=== PATIENT | male | born 1950 | race Hispanic/Latino ===

== ENCOUNTER 2017-09-01 20:27 | Emergency (ER) | payer MEDICARE ==
[~2017-09-01] VITALS: Ht 167.6 cm; Wt 86.2 kg
[~2017-09-01 20:27] MED LIST: ASPIRIN EC81 MG PO; IRON PO; LISINOPRIL-HCT1 EACH PO; METFORMIN HCL500 MG PO; PROMETHAZINE HC25 M1 PO; PROMETHAZINE PO; TAMSULOSIN HCL0.4 MG PO; TYLENOL WITH C1 EAC1 PO; TYLENOL WITH C1 EACH PO
--- NOTE | 2017-09-01 23:49 | Diagnostic Imaging Report ---
EXAMINATION: Head and cervical spine CT without contrast. HISTORY: Status post fall, head trauma, laceration COMPARISON: None. TECHNIQUE: Multidetector axial images were obtained without contrast from the foramen magnum to the vertex and through the cervical spine. The images were reconstructed using brain and bone algorithms. Thin section brain images were reformatted into coronal and sagittal planes. HEAD CT FINDINGS: Skull: No lytic or blastic lesions. No fractures. Parenchyma: A few scattered white matter hypodensities, most likely nonspecific chronic microvascular ischemic changes. No mass, hemorrhage or CT evidence of acute vascular insult. Brain volume: Normal for age. Ventricles: No hydrocephalus or displacement. Arteries: No density suggestive of thrombus. Dural sinuses: No abnormal density. Extra-axial spaces: Tiny hyperdense focus in the anterior aspect of the left inferior frontal gyrus/adjacent subarachnoid space is only seen on the axial plane and likely corresponds to artifact, similar to the one seen on the right inferior frontal region. Foramen magnum: No mass, Chiari malformation, or basilar invagination. Sella: No obvious mass. Paranasal/mastoid sinuses: Imaged portions unremarkable. CERVICAL SPINE CT FINDINGS: Alignment:Normal alignment and lordosis. Soft tissues: Normal. Vertebrae: Normal height and density. No acute fracture, infection or neoplasm. Degenerative changes: C1-C2: Mild degenerative changes without stenoses. C4-C5: Mild uncovertebral hypertrophic thickening in the right. Moderate right foraminal stenoses. C5-C6: Small disc osteophyte, mild uncovertebral and facet hypertrophy. Mild right foraminal stenoses. IMPRESSION: Head CT: No acute posttraumatic intracranial abnormalities, particularly no hemorrhage. Cervical spine CT: 1. No acute fractures or dislocations. 2. Mild chronic degenerative changes as described. Note: Acute post traumatic spinal cord, vascular or ligamentous injury cannot adequately be assessed with CT. Signed by: Dr. Lynnette Garcia M.D. on 09/01/2017 11:45 PM
[2017-09-02 00:23] VITALS: BP 142/87
== END 2017-09-02 00:24 | disposition home or self-care (01) ==
LOC: ER 20:27
DX: S00.83XA Contusion of other part of head, initial encounter (principal); S00.31XA Abrasion of nose, initial encounter; W01.0XXA Fall on same level from slipping, tripping and stumbling without subsequent striking against object, initial encounter; Y93.01 Activity, walking, marching and hiking; Y92.008 Other place in unspecified non-institutional (private) residence as the place of occurrence of the external cause; I10 Essential (primary) hypertension; E11.9 Type 2 diabetes mellitus without complications; Z87.19 Personal history of other diseases of the digestive system
CPT/HCPCS: 70450; 72125; 99283

== ENCOUNTER → 2017-10-19 | Day surgery (SDC) | payer MEDICARE ==
[2017-10-12 12:18] LABS: BASOPHILS # (AUTO) 0.1 (0.0-0.1); BASOPHILS % 0.8 % (0.0-1.0); EOSINOPHILS # (AUTO) 0.2 (0.0-0.4); EOSINOPHILS % 3.4 % (0.0-6.0); HEMATOCRIT 49.6 % (38.2-49.6); HEMOGLOBIN 15.7 g/dL (14.0-18.0); LYMPHOCYTES # (AUTO) 1.7 (1.0-3.2); LYMPHOCYTES % 26.7 % (18.0-39.1); MEAN CORPUSCULAR HEMOGLOBIN 25.8 pg (28-32); MEAN CORPUSCULAR HGB CONC 31.7 g/dL (31-35); MEAN CORPUSCULAR VOLUME 81.4 fL (81-99); MONOCYTES # (AUTO) 0.6 (0.2-0.8); MONOCYTES % 9.8 % (4.4-11.3); NEUTROPHILS # (AUTO) 3.8 (2.1-6.9); NEUTROPHILS % 59.1 % (38.7-80.0); PLATELET COUNT 203 x10e3/uL (140-360); RED BLOOD COUNT 6.09 x10e6/uL (4.3-5.7); RED CELL DISTRIBUTION WIDTH 16.4 % (11.7-14.4)
[~2017-10-19] MED LIST changes: +FENTANYL CITRATE/PF 100MCG/2 ML INJ ONE; +GLUCOSAMINE &1 EAC1; +HYOSCYAMINE SULFATE 0.5 MG/ML AMP ONE; +LISINOPRIL2.5 MG PO; +MIDAZOLAM HCL 2 MG/2 ML VIAL ONE; +MULTI-VITAMIN1 EACH PO; +PROPOFOL IV EMULSION 10 MG/ML 20 ML VIAL ONE
--- OUTSIDE RECORDS SUMMARY | 2017-10-19 10:54 | XMS REPORT | Continuity of Care Document ---
Author Author [facility] Organization [facility] Address [address] [place] [address] Phone Unavailable Care Team Providers Care Butter Maker Name Role Phone MIGUEL ÁNGEL NOVOA MD PCP Insurance Providers Guarantor Pato Pack Address [address] [place] [address] Email NONE Payer Medicare A & B Policy Number [id number] Subscriber's Name Pato Pack Relationship 18 Self / Same As Patient Group Number [id number] Group Name RETIRED Effective Date 15 Advance Directives Directive Response Recorded Date/Time Does the patient have an advance directive? No 03/06/16 5:52pm If yes, is advance directive on file with [facility]? No 03/06/16 5:52pm If not on file with [facility] will patient provide a copy? No 05/07/16 4:12pm Problems Medical Problem Onset Date Status Cellulitis Unknown SBO (small bowel obstruction) 10/17/2015 Acute Surgical Problem Onset Date Status History of CEA (carotid endarterectomy) Unknown Medications Current Home Medications Medication Dose Units Route Directions Days Qty Instructions Start Date Acetaminophen With Codeine (Tylenol With Codeine #4 Tablet) 1 Each Tablet 1 Tab Oral Every 4 Hours as needed for Pain Aspirin (Aspirin Ec) 81 Mg Tablet.dr 81 Mg Oral Daily 30 Tab Iron Oral Three Times A Day Lisinopril/Hydrochlorothiazide (Lisinopril-Hctz 20-12.5 Mg Tab) 1 Each Tablet Oral Daily Metformin Hcl 500 Mg Tablet 500 Mg Oral Twice A Day 60 Tab Promethazine Hcl 25 Mg Tablet 25 Mg Oral Every 4 Hours as needed for Nausea And Vomiting Tamsulosin Hcl 0.4 Mg Cap.er.24h Oral Daily Past Home Medications Medication Directions Ordered Status Acetaminophen With Codeine (Tylenol With Codeine #3 Tablet) 1 Each Tablet, 300 Mg Oral Every 4 Hours as needed for Abdominal Pain Discontinued Promethazine , 25 Mg Oral Every 4 Hours as needed for Nausea Discontinued Family History Relationship Condition Age at Onset Recorded Date/Time 32 Mother FHx: tuberculosis Unknown 10/17/2015 11:00pm Social History Social History Problem Response Recorded Date/Time Onset Date Status Hx Psychiatric Problems No 03/06/2016 5:52pm Not Applicable Not Applicable Hx Eating Disorder No 03/06/2016 5:52pm Not Applicable Not Applicable Hx Substance Use Disorder No 03/06/2016 5:52pm Not Applicable Not Applicable Hx Depression No 03/06/2016 5:52pm Not Applicable Not Applicable Hx Alcohol Use No 03/06/2016 5:52pm Not Applicable Not Applicable Hx Substance Use Treatment No 03/06/2016 5:52pm Not Applicable Not Applicable Hx Physical Abuse No 03/06/2016 5:52pm Not Applicable Not Applicable Smoking Status Start Date Stop Date Never Smoker Hospital Discharge Instructions No hospital discharge instruction information available. Plan of Care Discharge Date 09/02/17 12:24am Disposition HOME, SELF-CARE Condition at Discharge Stable Instructions/Education Provided Abrasion Contusion Prescriptions See Medication Section Referrals MIGUEL ÁNGEL NOVOA MD Order Date: As needed Address: [address] [place] [id number] Additional Instructions/Education Keep your injured extremity elevated above your heart, use ice packs for 15 to 20 minutes every 1-2 hours. This will help decrease pain and swelling. Take Motrin 400mg to 600mg every 4-6 hours as needed for pain. Was abrasions daily and apply thin layer of antibiotic ointment to area. Watch for local signs of infection. Follow up with your Primary care physician as needed. Return to the Emergency Department for any shortness of breath, increased pain injured extremity, discoloration of extremity crit is decreased circulation of extremity, or any new concerns. Functional Status No functional status information available. Allergies, Adverse Reactions, Alerts Allergen Type Severity Reaction Status Last Updated penicillin Allergy Severe RASH Active 09/01/17 Immunizations No immunization information available. Vital Signs Acute Vital Signs Vital Response Date/Time Temperature (Fahrenheit) 97.8 degrees F (97.6 - 99.5) 09/02/2017 12:23am Pulse Pulse Rate (adult) 82 bpm (60 - 90) 09/02/2017 12:23am Pulse Pulse Rate (adult) 82 bpm (60 - 90) 09/02/2017 12:23am Respiratory Rate 18 bpm (12 - 24) 09/02/2017 12:23am Blood Pressure 142/87 mm Hg 09/02/2017 12:23am Blood Pressure 142/87 mm Hg 09/02/2017 12:23am Height 5 ft 6 in 09/01/2017 9:05pm Weight 190 lb 09/01/2017 9:05pm Body Mass Index 30.7 kg/m^2 09/01/2017 9:05pm Results No relevant diagnostic test, laboratory data and/or discharge summary information available. Procedures Procedure Status Date Provider(s) Computed tomography of brain without radiopaque contrast Active 09/01/17 HUE FRASER TILE SETTER SUPERVISOR Computed tomography of cervical spine without contrast Active 09/01/17 HUE FRASER TILE SETTER SUPERVISOR Encounters Encounter Location Arrival/Admit Date Discharge/Depart Date Attending Provider Departed Emergency Room [facility] 09/01/17 8:27pm 12:24am KIT HAWTHORNE MD
--- OUTSIDE RECORDS SUMMARY | 2017-10-19 10:54 | XMS REPORT ---
Author [facility] Address Unknown Phone Unavailable Care Team Providers Care Electrician Elevator Maintenance Name Role Phone KIT HAWTHORNE Unavailable Unavailable Problems This patient has no known problems. Allergies, Adverse Reactions, Alerts This patient has no known allergies or adverse reactions. Medications This patient has no known medications. Results Test Description Test Time Test Comments Text Results Atomic Results Result Comments CT CERVICAL SPINE WO [place] [address] Patient Name: SALAZAR SANDOVAL MR #: [id number] : 1950 Age/Sex: 66/M Req #: [id number] Adm Physician: Ordered by: HUE FRASER FACTORY REPRESENTATIVE Report #: [id number] Location: ER Room/Bed: Procedure: [id number] CT/CT CERVICAL SPINE WO Exam Date: 09/01/17 Exam Time: 2147 REPORT STATUS: Signed EXAMINATION: Head and cervical spine CT without contrast. HISTORY: Status post fall, head trauma, laceration COMPARISON: None. TECHNIQUE: Multidetector axial images were obtained without contrast from the foramen magnum to the vertex and through the cervical spine. The images were reconstructed using brain and bone algorithms. Thin section brain images were reformatted into coronal and sagittal planes. HEAD CT FINDINGS: Skull: No lytic or blastic lesions. No fractures. Parenchyma: A few scattered white matter hypodensities, most likely nonspecific chronic microvascular ischemic changes. No mass, hemorrhage or CT evidence of acute vascular insult. Brain volume: Normal for age. Ventricles: No hydrocephalus or displacement. Arteries: No density suggestive of thrombus. Dural sinuses: No abnormal density. Extra-axial spaces: Tiny hyperdense focus in the anterior aspect of the left inferior frontal gyrus/adjacent subarachnoid space is only seen on the axial plane and likely corresponds to artifact, similar to the one seen on the right inferior frontal region. Foramen magnum: No mass, Chiari malformation, or basilar invagination. Sella: No obvious mass. Paranasal/mastoid sinuses: Imaged portions unremarkable. CERVICAL SPINE CT FINDINGS: Alignment:Normal alignment and lordosis. Soft tissues: Normal. Vertebrae: Normal height and density. No acute fracture, infection or neoplasm. Degenerative changes: C1-C2: Mild degenerative changes without stenoses. C4-C5: Mild uncovertebral hypertrophic thickening in the right. Moderate right foraminal stenoses. C5-C6: Small disc osteophyte, mild uncovertebral and facet hypertrophy. Mild right foraminal stenoses. IMPRESSION: Head CT: No acute posttraumatic intracranial abnormalities, particularly no hemorrhage. Cervical spine CT: 1. No acute fractures or dislocations. 2. Mild chronic degenerative changes as described. Note: Acute post traumatic spinal cord, vascular or ligamentous injury cannot adequately be assessed with CT. Signed by: Dr. Terrell Garcia M.D. on 09/01/2017 11:45 PM Dictated By: TERRELL GARCIA MD COPY TO: HUE FRASER NP CT BRAIN [place] [address] Patient Name: SALAZAR SANDOVAL MR #: [id number] : 1950 Age/Sex: 66/M Req #: [id number] Adm Physician: Ordered by: UHE FRASER NP Report #: [id number] Location: Room/Bed: Procedure: [id number] CT/CT BRAIN WO Exam Date: 09/01/17 Exam Time: 2147 REPORT STATUS: Signed EXAMINATION: Head and cervical spine CT without contrast. HISTORY: Status post fall, head trauma, laceration COMPARISON: None. TECHNIQUE: Multidetector axial images were obtained without contrast from the foramen magnum to the vertex and through the cervical spine. The images were reconstructed using brain and bone algorithms. Thin section brain images were reformatted into coronal and sagittal planes. HEAD CT FINDINGS: Skull: No lytic or blastic lesions. No fractures. Parenchyma: A few scattered white matter hypodensities, most likely nonspecific chronic microvascular ischemic changes. No mass, hemorrhage or CT evidence of acute vascular insult. Brain volume: Normal for age. Ventricles: No hydrocephalus or displacement. Arteries: No density suggestive of thrombus. Dural sinuses: No abnormal density. Extra-axial spaces: Tiny hyperdense focus in the anterior aspect of the left inferior frontal gyrus/adjacent subarachnoid space is only seen on the axial plane and likely corresponds to artifact, similar to the one seen on the right inferior frontal region. Foramen magnum: No mass, Chiari malformation, or basilar invagination. Sella: No obvious mass. Paranasal/mastoid sinuses: Imaged portions unremarkable. CERVICAL SPINE CT FINDINGS: Alignment:Normal alignment and lordosis. Soft tissues: Normal. Vertebrae: Normal height and density. No acute fracture, infection or neoplasm. Degenerative changes: C1-C2: Mild degenerative changes without stenoses. C4-C5: Mild uncovertebral hypertrophic thickening in the right. Moderate right foraminal stenoses. C5-C6: Small disc osteophyte, mild uncovertebral and facet hypertrophy. Mild right foraminal stenoses. IMPRESSION: Head CT: No acute posttraumatic intracranial abnormalities, particularly no hemorrhage. Cervical spine CT: 1. No acute fractures or dislocations. 2. Mild chronic degenerative changes as described. Note: Acute post traumatic spinal cord, vascular or ligamentous injury cannot adequately be assessed with CT. Signed by: Dr. Terrell Garcia M.D. on 09/01/2017 11:45 PM Dictated By: TERRELL GARCIA MD [id number] COPY TO: HUE FRASER NP
--- NOTE | 2017-10-19 16:13 | Operative Report ---
DATE OF PROCEDURE: October 19, 2017 REFERRING PHYSICIAN: Dr. Camila Nuñez. PROCEDURE PERFORMED: 1. Esophagogastroduodenoscopy with esophageal dilatation and biopsies. 2. Colonoscopy with polypectomy. INDICATIONS FOR ESOPHAGOGASTRODUODENOSCOPY: Dysphagia, history of heartburn indigestion. INDICATIONS FOR COLONOSCOPY: Colorectal cancer screening. MEDICATION: Patient was done under MAC. Please see anesthesiologist's note. PROCEDURE: With patient in the left lateral decubitus position, the flexible fiberoptic Olympus gastroscope was introduced into the esophagus under direct visualization without any difficulty. There was some patchy erythema noted in the distal esophagus. A minute tongue of velvety red mucosa was noted to extend proximally from the GE junction, and biopsies were obtained to rule out Hunt's. A mild stricture was noted at the GE junction, and that was dilated to size 52-[place] Almendarez. The scope was then advanced with ease into the stomach. Mucosa overlying the antrum and the body revealed some patchy erythema and low-grade to moderate edema, and biopsies were obtained and sent to stain for H. pylori. Pylorus appeared to be of normal contour and shape, was intubated with ease, and the scope was advanced all the way to the 2nd portion of the duodenum. The scope was then withdrawn slowly, and the mucosa overlying the proximal 2nd portion and the duodenal bulb appeared to be within normal limits. The scope was then withdrawn back into the stomach and retroflexed, and the mucosa overlying the fundus and the cardia appeared to be within normal limits. The scope was then straightened out. It was subsequently withdrawn. Patient tolerated procedure well. IMPRESSION: 1. Distal esophagitis. 2. Rule out Hunt's esophagus. 3. 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 4. Gastritis biopsied. Biopsies sent to stain for H. pylori. PLAN: Follow up histology. Initiate Protonix 40 mg 1 p.o. q.a.m. a.c. Patient was then turned around and after adequate lubrication of the anal canal, a flexible fiberoptic Olympus colonoscope was inserted into the rectum with ease and advanced all the way to the cecum. It was then withdrawn slowly. Mucosa overlying the cecum appeared to be within normal limits. Some diverticular disease was noted in the ascending, transverse and descending colon. Anastomotic site was noted at approximately 20 cm from the anal verge, and it was intact. Two polyps were hot biopsied from the rectum. The scope was then retroflexed into the distal rectum and small internal hemorrhoids were noted, none of which was actively bleeding. The scope was then straightened out. It was subsequently withdrawn. Patient tolerated procedure well. IMPRESSION: 1. Diverticulosis. 2. Anastomosis at approximately 20 cm from the anal verge, intact. 3. Rectal polyps times 2 hot biopsied. 4. Internal hemorrhoids, none actively bleeding. PLAN: Follow up histology. Initiate high-fiber low-fat diet. Initiate high-fiber supplement. Patient will need a followup colonoscopy in 3 to 5 years. Job#: [id number] EV cc:CAMILA NUÑEZ M.D.
== END | disposition home or self-care (01) ==
LOC: OR 10:53
PROVIDERS: ATTEND Internal Medicine Gastroenterology
DX: Z12.11 Encounter for screening for malignant neoplasm of colon (principal); K62.1 Rectal polyp; K29.70 Gastritis, unspecified, without bleeding; K22.2 Esophageal obstruction; K21.9 Gastro-esophageal reflux disease without esophagitis; K22.70 Barrett's esophagus without dysplasia; K20.9 Esophagitis, unspecified; K57.30 Diverticulosis of large intestine without perforation or abscess without bleeding; Z98.0 Intestinal bypass and anastomosis status; K59.00 Constipation, unspecified; K64.8 Other hemorrhoids; I10 Essential (primary) hypertension; E11.9 Type 2 diabetes mellitus without complications; E66.9 Obesity, unspecified; R00.1 Bradycardia, unspecified; Z88.0 Allergy status to penicillin; Z01.810 Encounter for preprocedural cardiovascular examination; Z01.812 Encounter for preprocedural laboratory examination; Z79.84 Long term (current) use of oral hypoglycemic drugs; Z68.32 Body mass index [BMI] 32.0-32.9, adult
CPT/HCPCS: 36415 ×2; 43239; 43450; 45384; 82948; 85025; 93005; J1980; J2250

== ENCOUNTER 2021-11-26 13:20 | Emergency (ER) | payer OTHER ==
[~2021-11-26] VITALS: Ht 165.1 cm; Wt 94.3 kg
[2021-11-26] MEDS ORDERED: IBUPROFEN 600 MG TAB PO STA (13:39)
== END 2021-11-26 15:16 | disposition home or self-care (01) ==
LOC: MERGE 13:34 → ER 13:34
DX: M54.2 Cervicalgia (principal); M54.50 Low back pain, unspecified; M25.562 Pain in left knee; V43.52XA Car driver injured in collision with other type car in traffic accident, initial encounter; Y92.488 Other paved roadways as the place of occurrence of the external cause; I10 Essential (primary) hypertension; E11.9 Type 2 diabetes mellitus without complications
CPT/HCPCS: 72125; 99283

== ENCOUNTER → 2021-11-26 | Emergency (ER) | payer OTHER ==
[~2021-11-26] MED LIST changes: -FENTANYL CITRATE/PF 100MCG/2 ML INJ ONE; -HYOSCYAMINE SULFATE 0.5 MG/ML AMP ONE; -MIDAZOLAM HCL 2 MG/2 ML VIAL ONE; -PROPOFOL IV EMULSION 10 MG/ML 20 ML VIAL ONE
== END | disposition left against medical advice (07) ==
LOC: ER 13:33 → MERGE 13:33
DX: M54.2 Cervicalgia (principal)

== ENCOUNTER 2022-11-22 21:58 | Emergency (ER) | payer MEDICARE, OTHER ==
[~2022-11-22] VITALS: Ht 165.1 cm; Wt 94.3 kg
[2022-11-22] MEDS ORDERED: SODIUM CHLORIDE 0.9% 1000ML 1,000 ML IV ONE (22:15)
[2022-11-22 22:25] LABS: BASOPHILS # (AUTO) 0.1 (0.0-0.1); BASOPHILS % 1.2 % (0.0-1.0); EOSINOPHILS # (AUTO) 0.2 (0.0-0.4); EOSINOPHILS % 2.1 % (0.0-6.0); HEMATOCRIT 45.5 % (38.2-49.6); LYMPHOCYTES # (AUTO) 2.2 (1.0-3.2); MEAN CORPUSCULAR HEMOGLOBIN 25.6 pg (28-32); MEAN CORPUSCULAR VOLUME 77.5 fL (81-99); MONOCYTES # (AUTO) 0.8 (0.2-0.8); MONOCYTES % 9.1 % (4.4-11.3); NEUTROPHILS # (AUTO) 5.8 (2.1-6.9); NEUTROPHILS % 63.4 % (38.7-80.0); PLATELET COUNT 173 x10e3/uL (140-360); RED BLOOD COUNT 5.87 x10e6/uL (4.3-5.7); RED CELL DISTRIBUTION WIDTH 16.3 % (11.7-14.4)
[2022-11-22 22:35] LABS: INR 1.03; PARTIAL THROMBOPLASTIN TIME 29.7 seconds (23.8-35.5)
[2022-11-22 22:44] LABS: ALBUMIN 4.2 g/dL (3.5-5.0); ANION GAP 17.9 mmol/L (8-16); CALCIUM 9.1 mg/dL (8.4-10.2); CREATININE, SERUM 1.01 mg/dL (0.72-1.25); POTASSIUM 3.9 mmol/L (3.5-5.1)
[2022-11-22] MEDS ORDERED: IOPAMIDOL 370 MG/ML 100 ML INFUS..BTL INJ ONE (23:18)
[2022-11-23 01:54] VITALS: BP 118/73; PULSE 57; RESP 15; TEMP 98; O2SAT 95
== END 2022-11-23 01:57 | disposition home or self-care (01) ==
LOC: ER 22:00
DX: K62.5 Hemorrhage of anus and rectum (principal); E11.65 Type 2 diabetes mellitus with hyperglycemia; I10 Essential (primary) hypertension; Z87.19 Personal history of other diseases of the digestive system
CPT/HCPCS: 36415; 74174; 80053; 85025; 85610; 85730; 86850; 86900; 99284; J7030; Q9967

== ENCOUNTER 2024-03-10 12:21 | Emergency (ER) | payer MEDICARE ==
[~2024-03-10] VITALS: Ht 165.1 cm; Wt 94.3 kg
[~2024-03-10 12:21] MED LIST changes: +ANUSOL-HC25 MG RC
[2024-03-10 12:48] VITALS: PULSE 64; RESP 18; TEMP 97.8; O2SAT 98
[2024-03-10] MEDS ORDERED: CIPRO HC OTIC S10 ML LEFT EAR (13:03)
[2024-03-10] MEDS ORDERED: CIPROFLOX-DEXA7.5 ML LEFT EAR (18:26)
== END 2024-03-10 13:09 | disposition home or self-care (01) ==
LOC: ER 12:39
DX: H60.92 Unspecified otitis externa, left ear (principal); H61.22 Impacted cerumen, left ear; I10 Essential (primary) hypertension; E11.9 Type 2 diabetes mellitus without complications; E78.5 Hyperlipidemia, unspecified; E03.9 Hypothyroidism, unspecified; Z87.19 Personal history of other diseases of the digestive system
CPT/HCPCS: 99283